=== PATIENT | female | born 1935 | race Caucasian/White ===

== ENCOUNTER 2016-08-20 05:39 | Day surgery (SDC) | payer MEDICARE, OTHER ==
--- NOTE | ~2016-08-20 | EGD ---
EGD REPORT [facility] [address] [place] [address] NAME: MORTEZA MARTÍNEZ : 37 STATUS : REG [facility]#: [id number] AGE: 80 ADM/REG DATE : 08/20/16 MR#: [id number] REPORT SERV DATE: 08/20/16 DICTATED BY: HUGH CHRISTOPHER DATE: 08/20/16 REPORT STATUS : Draft TRANSCRIBED BY: [employer] DATE: 08/20/16 [facility] Patient Name: Morteza Martínez. Date of : 1935 Attending MD: HUGH CHRISTOPHER, Procedure Date No Time: 08/20/2016 Procedure: Upper GI endoscopy Indications: Dyspepsia, Place PEG due to dysphagia Referring MD: YOSEPH DERAS Medicines: Monitored Anesthesia Care Complications: No immediate complications. Estimated blood loss: None. Procedure: Pre-Anesthesia Assessment: - ASA Grade Assessment: IV - A patient with severe systemic disease that is a constant threat to life. After obtaining informed consent, the endoscope was passed under direct vision. Throughout the procedure, the patient's blood pressure, pulse, and oxygen saturations were monitored continuously. The GIF [id number] was introduced through the mouth, and advanced to the second part of duodenum. The upper GI endoscopy was accomplished without difficulty. The patient tolerated the procedure well. Findings: A benign-appearing, intrinsic mild stenosis measuring 1 cm (in length) was found in the upper third of the esophagus and was traversed. 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 The maximum longitudinal extent of these mucosal changes was 1 cm in length. Biopsies were taken with a cold forceps for histology. Verification of patient identification for the specimen was done. Estimated blood loss was minimal. A small hiatus hernia was present. The examined duodenum was normal. The patient was placed in the supine position for PEG placement. The stomach was insufflated to appose gastric and abdominal lopez. A site was located in the body of the stomach with good transillumination and manual external pressure for placement. The abdominal wall was marked and prepped in a sterile manner. The area was anesthetized with 4 mL of 1% lidocaine. The trocar needle was introduced through the abdominal wall and into the stomach under direct endoscopic view. A snare was introduced through the endoscope and opened in the gastric lumen. The guide wire was passed through the trocar and into the open snare. The snare was closed around the guide wire. The endoscope and snare were removed, pulling the wire out through the mouth. A skin incision was made at the site of needle insertion. The 24 Fr [employer] EGD REPORT [id number] [facility] [place]. [address] NAME: MORTEZA MARTÍNEZ : 37 STATUS : REG [facility] [place] PAT#: [id number] AGE: 80 ADM/REG DATE : 08/20/16 MR#: [id number] REPORT SERV DATE: 08/20/16 DICTATED BY: HUGH CHRISTOPHER DATE: 08/20/16 REPORT STATUS : Draft TRANSCRIBED BY: [employer] DATE: 08/20/16 gastrostomy tube was lubricated. The G-tube was passed over the guide wire through the mouth, and into the stomach. The trocar needle was removed, and the gastrostomy tube was pulled out from the stomach through the skin. The guide wire was removed, and the external bumper attached to the gastrostomy tube. The feeding tube was then cut to an appropriate length. The final position of the gastrostomy tube was confirmed by relook endoscopy, and skin marking noted to be 3.5 cm at the external bumper. The final tension and compression of the abdominal wall by the PEG tube and external bumper were checked and revealed that the bumper was loose and lightly touching the skin. The feeding tube was capped, and the tube site was cleaned and dressed. Impression: - Benign-appearing esophageal stricture. - Palomo's esophagus. Biopsied. - Hiatus hernia. - Normal examined duodenum. - A PEG placement was successfully completed. Recommendation: - Please follow the post-PEG recommendations including: NPO x4 hrs then water today, may use PEG today for meds and water and may use PEG tomorrow for feedings. - Jevity 1.2 at 50 ml per hour. Provide an additional 450 ml of free water per day in divided doses. - Await pathology results. - Continue present medications. Procedure Code(s): --- Professional --- 31667, Esophagogastroduodenoscopy, flexible, transoral; with directed placement of percutaneous gastrostomy tube 93137, Esophagogastroduodenoscopy, flexible, transoral; with biopsy, single or multiple Diagnosis Code(s): --- Professional --- K22.2, Esophageal obstruction K22.70, Palomo's esophagus without dysplasia K44.9, Diaphragmatic hernia without obstruction or gangrene K30, Functional dyspepsia R13.10, Dysphagia, unspecified Z43.1, Encounter for attention to gastrostomy CPT copyright 2013 [employer]. All rights reserved. The codes documented in this report are preliminary and upon parking assistant review may be revised to meet current compliance requirements. EGD REPORT [address] [place]. [address] NAME: MORTEZA MARTÍNEZ : 37 STATUS : REG [facility] [place] PAT#: [id number] AGE: 80 ADM/REG DATE : 08/20/16 MR#: [id number] REPORT SERV DATE: 08/20/16 DICTATED BY: HUGH CHRISTOPHER DATE: 08/20/16 REPORT STATUS : Draft TRANSCRIBED BY: [employer] DATE: 08/20/16 HUGH CHRISTOPHER, 08/20/2016 7:50 AM Number of Addenda: 0 Note Initiated On: 08/20/2016 7:23 AM Scope Withdrawal Time 0 hours 0 minutes 0 seconds [id number] [address] [place] [id number]
[~2016-08-20 05:39] MED LIST: 8 HOUR650 MG PO; ALAWAY0.025 % OPH; BACDS PO; C25 PO; C5 PO; CALTRA600D PO; CALTRAT600 PO; CHEMO THERAPY IV; COUMADIN6 MG PO; COUMADIN7.5 MG PO; DEX4 PO; DITROPAN XL10 MG PO; FISH-EPA1000 MG PO; KEPPRA750 MG PO; LEXAPRO10 PO; MAGIC MOUTHWASH; MULTI-VIT HP PO; NORV10 PO; OXYCOD PO; VITC500 PO; ZOCOR20 PO
[2016-08-20 06:30] LABS: INTERNATIONAL NORMAL RATI 1.6 UNITS (-)
== END 2016-08-20 23:59 | disposition home or self-care (01) ==
LOC: DMU 05:39
PROVIDERS: Anesthesiology; Internal Medicine Gastroenterology
PROC: 0DH63UZ Insertion of Feeding Device into Stomach, Percutaneous Approach (ICD-10-PCS; 2016-08-20)
PROC: 0DB38ZX Excision of Lower Esophagus, Via Natural or Artificial Opening Endoscopic, Diagnostic (ICD-10-PCS; principal; 2016-08-20 07:30)
DX: K22.2 Esophageal obstruction (principal); K22.70 Barrett's esophagus without dysplasia; K44.9 Diaphragmatic hernia without obstruction or gangrene; G40.909 Epilepsy, unspecified, not intractable, without status epilepticus; Z85.21 Personal history of malignant neoplasm of larynx; Z92.21 Personal history of antineoplastic chemotherapy; Z87.01 Personal history of pneumonia (recurrent); Z91.09 Other allergy status, other than to drugs and biological substances; Z79.01 Long term (current) use of anticoagulants; Z79.899 Other long term (current) drug therapy
CPT/HCPCS: 85610; 88305; J0690

== ENCOUNTER 2016-10-11 16:07 | Inpatient (IN) | payer MEDICARE, OTHER ==
--- NOTE | ~2016-10-11 | OP ---
Record Of Operation [facility] [address] [place]. [address] NAME: MORTEZA MARTÍNEZ : 37 STATUS : ADM IN [facility]#: [id number] AGE: 80 ADM/REG DATE : 10/11/16 MR#: [id number] REPORT SERV DATE: 10/12/16 DICTATED BY: IZA TRUONG DATE: 10/11/16 REPORT STATUS : Draft TRANSCRIBED BY: MODL DATE: 10/11/16 DATE OF PROCEDURE: 10/11/2016 TIME: 1900 hours. PROCEDURE: Right internal jugular venous line. INDICATION: For access. DESCRIPTION OF PROCEDURE: Informed consent obtained. The risks, benefits of procedure. Time-out was done. Trendelenburg position. Ultrasound-guided. Betadine used for scrub. Xylocaine 1% used for anesthesia. Right IJ entered with seeker needle. Catheter placed over guidewire via modified Seldinger technique to 15 cm, sutured in place. Sterile technique used throughout. Confirmed by agitated saline echo which showed agitated saline in the right atrium. No pneumothorax by echo and confirmed by x-ray. Sterile technique used throughout. BILL/JORGE Iza Truong M.D. / [id number] CC: MD Nikolas Avila
--- NOTE | ~2016-10-11 | IDS ---
Interim Discharge Summary [facility] [address] [place]. [address] NAME: MORTEZA MARTÍNEZ : 37 STATUS : ADM IN PAT#: [id number] AGE: 80 ADM/REG DATE : 10/11/16 MR#: [id number] REPORT SERV DATE: 10/14/16 DICTATED BY: KRYSTLE PRABHAKAR DATE: 10/14/16 REPORT STATUS : Draft TRANSCRIBED BY: MODL DATE: 10/14/16 ADMISSION DATE: 10/11/2016 DISCHARGE DATE: INTERIM DIAGNOSES: 1. Acute hypoxic respiratory failure. 2. Septic shock. 3. Healthcare-associated pneumonia. 4. Acute renal failure. 5. History of seizures. 6. History of laryngeal cancer. ICU COURSE: Please see the dictated H and P for full patient presentation and history. 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 Mendenhall as well as peripheral arterial disease and history of seizures, who initially presented with cough, shortness of breath, found to have a multifocal health-care associated pneumonia as well as septic shock, and was admitted to our ICU back on 10/11/2016. 1. Acute hypoxic respiratory failure with healthcare-associated pneumonia. The patient currently resides in a fci. We empirically put her initially on vancomycin and Zosyn for coverage of healthcare-associated pneumonia. Her sputum thus far has grown out Strep pyogenes as well as rare gram-negative rods. Her antibiotic has since been tailored to Unasyn, and she has done well from that standpoint. We will continue to follow up her sputum culture for further speciation. From respiratory failure standpoint, she is a do not intubate. Initially, she was requiring Vapotherm to maintain sats greater than 90%. However, we have been able to wean her down to nasal cannula over the last 48 hours. We are getting Physical Therapy to see her today, and also continue with incentive spirometry and EzPAP. 2. Septic shock. The patient initially required placement of a central line and was on Levophed for 24 to 48 hours. She has now been off her Levophed for the past 36 hours or so. Has done well from the blood pressure standpoint. Today we are getting out her central line and placing a midline peripheral. 3. Acute renal failure. The patient did have elevated creatinine and poor urine output. She first arrived. Her renal failure has now resolved. We will continue to monitor her urine output and creatinine. 4. The patient is stable and will be transferred out to a floor bed today. The Hospitalist will assume her care once she goes out from the unit. Please call if you have any questions. KAVITHA/JORGE Kyrstle Prabhakar MD Interim Discharge Summary [address] [address] NAME: MORTEZA MARTÍNEZ : 37 STATUS : ADM IN PAT#: [id number] AGE: 80 ADM/REG DATE : 10/11/16 MR#: [id number] REPORT SERV DATE: 10/14/16 DICTATED BY: KRYSTLE PRABHAKAR DATE: 10/14/16 REPORT STATUS : Draft TRANSCRIBED BY: JORGE DATE: 10/14/16 / [id number] CC: Krystle Prabhakar MD [facility]
--- NOTE | ~2016-10-11 | IDS ---
Interim Discharge Summary [facility] [address] [place]. [address] NAME: MORTEZA MARTÍNEZ : 37 STATUS : ADM IN [facility]#: [id number] AGE: 80 ADM/REG DATE : 10/11/16 MR#: [id number] REPORT SERV DATE: 10/18/16 DICTATED BY: EMELY ZULETA DATE: 10/18/16 REPORT STATUS : Draft TRANSCRIBED BY: MODL DATE: 10/18/16 ADMISSION DATE: 10/11/2016 DISCHARGE DATE: REASON FOR ADMISSION: Septic shock, acute kidney injury, strep pyogenes pneumonia. HISTORY OF PRESENT ILLNESS: Please refer to Dr. Tom Prabhakar's history and physical dated 10/11/2016 for complete details regarding the patient's admission. The patient was [facility] to the ICU for septic shock secondary to pneumonia. HOSPITAL COURSE: From admission to 10/14/[address] Prabhakar's interim summary. In brief, the patient was treated for acute hypoxic respiratory failure, septic shock, strep pyogenes pneumonia, and KHOA secondary to ATN. While in the ICU, she was weaned down to 2 liters of nasal cannula and then transferred out to the Hospitalist Service on 10/14/2016. Hospital course from 10/15/2016 to present, I assumed care of this patient from Dr. Prabhakar. On the morning that I assumed care of her on , she was saturating fine on 2 liters nasal cannula. Throughout the day, her oxygenation had continued to decline to the point where she was placed on a non-rebreather on the day that I assumed care of her. I look back at the record and she had not been on any DVT prophylaxis since the first day of admission, certainly concern for a PE. She had a stat CT angio of her chest done on 10/15/2016 which showed no pulmonary emboli, but there are small pleural effusions with compressive atelectasis along with left lower lobe bronchi occlusion secondary to mucus plugging. With this, she was started on aggressive pulmonary toilet. She gotten wean down to about 5 liters of nasal cannula currently. Pulmonary Medicine was consulted and continued to follow the patient. Dr. Restrepo did not advice doing a bronchoscopy to break up her mucus plugging given how much oxygenation she was requiring. She continues to be on Unasyn, it is approximately day eight. She does not have any complaints. She continues to be frail and very brittle. Her family has been updated. The family states that she was doing a pureed diet at the senior care, and therefore, we will get a Speech Therapy evaluation. The family states that she has been cancer free and has finished her chemotherapy and radiation treatment for her laryngeal cancer. She does have a known history of seizures while she is on Keppra, there has been no seizure activity. Overall, the patient has a poor prognosis. She has expressed to be DO NOT RESUSCITATE/DO NOT INTUBATE and we will respect her wishes. DISPOSITION: The patient will go back to her facility at [facility] in [place] after we were able to wean her oxygen levels down, which could be in a couple of days. The family has been updated. Further disposition decision per oncoming hospitalist who will assume care of this patient on 10/19/2016. INTERIM DIAGNOSES: Acute on chronic hypoxic respiratory failure; septic shock secondary to Streptococcus pyogenes pneumonia; acute kidney injury secondary to acute tubular necrosis; severe malnutrition; history of seizures; history of laryngeal cancer, status post chemotherapy and radiation; history of uterine cancer; dysphagia; and debility. Interim Discharge Summary [address] [address] NAME: MORTEZA MARTÍNEZ : 37 STATUS : ADM IN [facility]#: [id number] AGE: 80 ADM/REG DATE : 10/11/16 MR#: [id number] REPORT SERV DATE: 10/18/16 DICTATED BY: EMELY ZULETA DATE: 10/18/16 REPORT STATUS : Draft TRANSCRIBED BY: JORGE DATE: 10/18/16 LYNN/JORGE Emely Zuleta MD / [id number] CC: MD AUGUSTA Jarvis [facility]
--- NOTE | ~2016-10-11 | HP ---
History And Physical [id number] [place]. [address] NAME: MORTEZA MARTÍNEZ : 37 STATUS : ADM IN [facility]#: [id number] AGE: 80 ADM/REG DATE : 10/11/16 MR#: [id number] REPORT SERV DATE: 10/11/16 DICTATED BY: KRYSTLE PRABHAKAR DATE: 10/11/16 REPORT STATUS : Draft TRANSCRIBED BY: MODL DATE: 10/11/16 DATE OF ADMISSION: 10/11/2016 CHIEF COMPLAINT: Shortness of breath and cough. HISTORY OF PRESENT ILLNESS: The patient is a 80-year-old white female with a past medical history of laryngeal squamous cell carcinoma, peripheral arterial disease, and history of seizures, who presents to the emergency room with complaints of cough and shortness of breath. The patient currently resides in a long-term acute care facility when the staff there noticed that she has been having worsening shortness of breath over the last couple of days with a productive cough. She was sent to the emergency room at outside hospital for evaluation. There she was noted to be tachypneic and had a chest x-ray that showed bilateral infiltrates. She was eventually placed on a non-rebreather for hypoxia. She also had some mild confusion as well as a low-grade temperature and lactic acid of 4.7 with a borderline blood pressure concerning for pneumonia with sepsis. The patient is a DNR/DNI, but she is okay with vasopressors and so the patient was transferred to our facility for further treatment of her pneumonia and sepsis. PAST MEDICAL HISTORY: 1. History of laryngeal cancer with squamous cell carcinoma, status post chemoradiation by Dr. Mendenhall. 2. History of seizures. 3. History of hypertension. 4. History of right DVT. 5. Peripheral arterial disease. 6. Hyperlipidemia. 7. History of uterine cancer, status post hysterectomy. 8. History of multiple small-bowel obstructions. 9. History of left AKA. ALLERGIES: RUBBING ALCOHOL. HOME MEDICATIONS: 1. Ditropan 10 mg p.o. daily. 2. Keppra 750 mg p.o. twice daily. 3. Norvasc 10 mg p.o. daily. 4. Lexapro 10 mg p.o. daily. 5. Zocor 20 mg p.o. q.h.s. 6. Roxicodone 5 mg p.o. q.6 hours as needed. SOCIAL HISTORY: Remote history of tobacco use, quit at age 53. No alcohol or IV drug abuse. Currently living in a long-term care facility. FAMILY HISTORY: Reviewed and positive for lung cancer in mother and breast cancer in grandmother. History And Physical [address] [place]. [address] NAME: MORTEZA MARTÍNEZ : 37 STATUS : ADM IN [facility]#: [id number] AGE: 80 ADM/REG DATE : 10/11/16 MR#: [id number] REPORT SERV DATE: 10/11/16 DICTATED BY: KYRSTLE PRABHAKAR DATE: 10/11/16 REPORT STATUS : Draft TRANSCRIBED BY: JORGE DATE: 10/11/16 REVIEW OF SYSTEMS: A 10-point review of systems is negative except as mentioned in the HPI. PHYSICAL EXAMINATION: GENERAL: Elderly-appearing female, in mild respiratory distress. HEENT: Pupils are equal, round, and reactive to light. Extraocular movements are intact. Oropharynx is clear. Dry mucous membranes. NECK: Supple. Nontender. No lymphadenopathy. No thyromegaly. No jugular venous distention. LUNGS: Coarse breath sounds bilaterally. CARDIOVASCULAR: Tachycardic. No murmurs, rubs, or gallops. ABDOMEN: Soft, nontender, nondistended. Positive bowel sounds. No hepatosplenomegaly. EXTREMITIES: No cyanosis, clubbing, or edema. NEUROLOGIC: Alert and oriented x3. Cranial nerves intact. PSYCH: Mood appropriate. LABORATORIES AND IMAGING: Pending at this time of the dictation per outside hospital. Lactic acid was 4.7. Chest x-ray showed diffuse bilateral infiltrates consistent with pneumonia. ASSESSMENT AND PLAN: The patient is a 80-year-old female with past medical history of laryngeal cancer and seizures, who now presents with a two-day history of shortness of breath and a productive cough with a chest x-ray concerning for healthcare associated pneumonia and sepsis with possible septic shock. 1. Healthcare associated pneumonia. Empirically, we will start patient on vancomycin and Zosyn. I will get a sputum culture as well as blood cultures x2 and procalcitonin. Also check a BNP and get echocardiogram as well as cardiac enzymes. The patient is do not intubate. We will place her on Vapotherm and wean for sats greater than 90%. 2. Septic shock. The patient currently has a systolic blood pressure in the 80s. We are giving further IV fluid resuscitation and getting PICC line. If needed to be, we will start Levophed for the patient to maintain a MAP greater than 65. 3. Hypertension. We will hold the patient's home antihypertensives for now. 4. History of seizures. We will continue the patient's home Keppra. 5. The patient is a do not resuscitate/do not intubate. 6. The patient has a high probability of sudden clinically significant or life-threatening deterioration in her condition. Total critical care time spent on this patient was 40 minutes. KAVITHA/JORGE Krystle Prabhakar MD / [id number] History And Physical [address] [address] NAME: MORTEZA MARTÍNEZ : 37 STATUS : ADM IN [facility]#: [id number] AGE: 80 ADM/REG DATE : 10/11/16 MR#: [id number] REPORT SERV DATE: 10/11/16 DICTATED BY: KRYSTLE PRABHAKAR DATE: 10/11/16 REPORT STATUS : Draft TRANSCRIBED BY: JORGE DATE: 10/11/16 CC: MD AUGUSTA Avila [facility]
--- NOTE | ~2016-10-11 | DS ---
Discharge Summary [facility] [address] [place]. [address] NAME: MORTEZA MARTÍNEZ : 37 STATUS : DIS IN PAT#: [id number] AGE: 80 ADM/REG DATE : 10/11/16 MR#: [id number] REPORT SERV DATE: 10/29/16 DICTATED BY: IHSAN PAZ DATE: 10/28/16 REPORT STATUS : Draft TRANSCRIBED BY: MODL DATE: 10/28/16 ADMISSION DATE: 10/11/2016 DISCHARGE DATE: 10/21/2016 DISCHARGE DIAGNOSES: 1. Hypoxic respiratory failure. 2. Septic shock. 3. Acute kidney injury secondary to acute tubular necrosis. 4. Dysphagia. 5. Severe malnutrition. 6. Streptococcus pyogenes pneumonia. CONSULTATIONS: Dr. Prabhakar. Initial admission to ICU from [facility]. HOSPITAL COURSE: Please see H and P for complete details of HPI. Additionally, please see interim summary by Dr. Tom Prabhakar and Dr. Zuleta for interim courses. Briefly, Ms. Martínez is a 80-year-old female, who presented with pneumonia, sepsis, Strep pyogenes, and septic shock requiring ICU support. The patient was from [place] [place] [facility]. Noted to have history of laryngeal cancer and concern for severe dysphagia, aspiration component additionally. The patient did have mucus plugging, which caused continued initial worsening of hypoxic respiratory failure, but was able to be weaned down from ICU care along with O2 requirements, weaned down to 5 L and eventually back to her baseline. The patient was on IV antibiotics. Did have clinical improvement. Was continued supportive treatment for respiratory and had repeat swallow study. Speech therapy evaluation still considered; however, as for p.o. intake, the patient was tolerating tube feeds and discharged back to [place], [place]. The patient did reconfirm that she is DNR/DNI and POLST forms were placed on chart. DDN/MODL Ihsan Paz MD / [id number] CC: Ihsan Paz MD [facility]
[2016-10-11] MEDS ORDERED: FLONASE NAS (19:16)
[2016-10-11] MEDS ORDERED: OXYBUTYNIN PEG (19:19)
[2016-10-11] MEDS ORDERED: PRILO PEG (19:20)
[2016-10-11] MEDS ORDERED: VITC500 PEG (19:20)
[2016-10-11] MEDS ORDERED: NORV10 PEG (19:20)
[2016-10-11] MEDS ORDERED: CLARIT10 PEG (19:20)
[2016-10-11] MEDS ORDERED: LEXAPRO10 PEG (19:21)
[2016-10-11] MEDS ORDERED: T PEG (19:21)
[2016-10-11] MEDS ORDERED: MAGIC MOUTHWASH PO (19:23)
[2016-10-11] MEDS ORDERED: COUMADIN4 MG PEG (19:23)
[2016-10-11] MEDS ORDERED: KEPPRAUDL PEG (19:23)
[2016-10-11] MEDS ORDERED: ULTRAM50 PEG (19:24)
[2016-10-11] MEDS ORDERED: OXYCOD PEG (19:24)
[2016-10-11] MEDS ORDERED: PRAVACHOL40 MG PEG (19:26)
[2016-10-11] MEDS ORDERED: DUONEB INH (19:26)
[2016-10-11 20:52] LABS: BASOPHILS 0.1 %; BASOPHILS ABSOLUTE 0.01 10/3/uL (0.0-0.16); EOSINOPHILS 0 %; HEMATOCRIT 30.5 % (36.0-48.0); HEMOGLOBIN 9.4 g/dL (12.0-16.0); IMMATURE GRANULOCYTES 0.3 %; IMMATURE GRANULOCYTES ABSOLUTE 0.05 10/3/uL (0.0-0.11); LYMPHOCYTES 1.6 %; LYMPHOCYTES ABSOLUTE 0.27 10/3/uL (0.67-4.30); MANUAL DIFF NO %; MEAN CORPUS HGB CONC 30.8 g/dL (32.0-36.0); MEAN CORPUSCULAR HEMOGLOB 24.7 pg (26.0-34.0); MEAN CORPUSCULAR VOLUME 80.3 fL (80-100); MEAN PLATELET VOLUME 9.3 fL (9.2-13.0); MONOCYTES 4.5 %; MONOCYTES ABSOLUTE 0.74 10/3/uL (0.21-1.20); NEUTROPHILS 93.5 %; NEUTROPHILS ABSOLUTE 15.48 10/3/uL (2.02-8.40); PLATELET COUNT 233 10/3/uL (150-400); RBC DISTRIBUTION WIDTH 17.5 % (12.0-16.0); WHITE BLOOD CELLS 16.6 10/3/uL (4.5-10.5)
[2016-10-11 21:02] LABS: ASCORBIC ACID (UR NOT ORDER) 40 (NEG); BILIRUBIN, URINE NEGATIVE (NEG); KETONE, URINE NEGATIVE (NEG); LEUKOCYTE ESTERASE(NOT OR NEG (NEG); WBC (NOT ORDERED) (RFLEX) 2 (0-5)
[2016-10-11 21:07] LABS: INTERNATIONAL NORMAL RATI 4.5 UNITS (-); PARTIAL THROMBO TIME 59.7 SEC (22.5-37.2)
[2016-10-11 21:11] LABS: A/G RATIO 0.6 (0.7-1.9); ALBUMIN 2.1 G/DL (3.5-5.0); ALKALINE PHOSPHATASE 69 U/L (45-117); BUN (BLOOD UREA NITROGEN) 34 MG/DL (6-23); CALCIUM, SERUM 8.3 MG/DL (8.5-10.4); CHLORIDE, SERUM 106 MMOL/L (96-112); CK-MB 3.9 NG/ML; CO2 (CARBON DIOXIDE) 26 MMOL/L (24-34); CPK 208 U/L (0-200); CREATININE 1.08 MG/DL (0.55-1.02); GFR AFRICAN AMERICAN 57 ML/MIN (>=60); GFR NON AFRICAN AMERICAN 49 ML/MIN (>=60); GLOBULIN 3.6 G/DL (2.5-4.1); GLUCOSE, SERUM 66 MG/DL (60-99); PHOSPHORUS, SERUM 3.1 MG/DL (2.5-4.5); POTASSIUM, SERUM 4.6 MMOL/L (3.5-5.3); SGOT(AST) 27 U/L (5-40); SGPT(ALT) 37 U/L (5-65); SODIUM, SERUM 142 MMOL/L (135-148); TOTAL BILIRUBIN 0.5 MG/DL (0-1.2); TOTAL PROTEIN 5.7 G/DL (6.0-8.5)
[2016-10-11 21:12] LABS: PROTIME (NOT ORD) 42.6 SEC (12.0-14.5)
[2016-10-11 21:13] LABS: TROPONIN I 0.26 NG/ML (<0.05)
[2016-10-11 22:12] LABS: PROCALCITONIN 108.42 ng/mL (<0.5)
[2016-10-12 04:05] LABS: INTERNATIONAL NORMAL RATI 5.8 UNITS (-); PROTIME (NOT ORD) 51.9 SEC (12.0-14.5)
[2016-10-12 04:13] LABS: A/G RATIO 0.5 (0.7-1.9); ALBUMIN 1.8 G/DL (3.5-5.0); ALKALINE PHOSPHATASE 67 U/L (45-117); CALCIUM, SERUM 8.5 MG/DL (8.5-10.4); CHLORIDE, SERUM 108 MMOL/L (96-112); CO2 (CARBON DIOXIDE) 25 MMOL/L (24-34); CREATININE 0.71 MG/DL (0.55-1.02); GFR AFRICAN AMERICAN 94 ML/MIN (>=60); GFR NON AFRICAN AMERICAN 81 ML/MIN (>=60); GLOBULIN 3.7 G/DL (2.5-4.1); PHOSPHORUS, SERUM 2.8 MG/DL (2.5-4.5); POTASSIUM, SERUM 4.4 MMOL/L (3.5-5.3); SGOT(AST) 27 U/L (5-40); SGPT(ALT) 32 U/L (5-65); SODIUM, SERUM 142 MMOL/L (135-148); TOTAL BILIRUBIN 0.4 MG/DL (0-1.2); TOTAL PROTEIN 5.5 G/DL (6.0-8.5)
[2016-10-12 04:19] LABS: BUN (BLOOD UREA NITROGEN) 30 MG/DL (6-23); GLUCOSE, SERUM 109 MG/DL (60-99); HEMOGLOBIN 9.6 g/dL (12.0-16.0); MEAN CORPUSCULAR HEMOGLOB 24.7 pg (26.0-34.0); MEAN CORPUSCULAR VOLUME 79.9 fL (80-100); PLATELET COUNT 255 10/3/uL (150-400); RBC DISTRIBUTION WIDTH 17.4 % (12.0-16.0); RED CELL COUNT 3.88 10/6/uL (4.0-5.6)
[2016-10-12 04:20] LABS: WHITE BLOOD CELLS 32.2 10/3/uL (4.5-10.5)
[2016-10-12 04:21] LABS: MANUAL DIFF YES %
[2016-10-12 06:32] LABS: ANISOCYTOSIS 1+ (5-10/OIF) (0-5/OIF); BAND NEUTROPHILS 22 %; IMMATURE GRANS ABSOLUTE (CALC) 0.32 10/3/uL (0.0-0.11); LYMPHOCYTES 2 %; LYMPHOCYTES ABSOLUTE (CALC) 0.64 10/3/uL (0.67-4.30); METAMYELOCYTES 1 %; MONOCYTES 4 %; MONOCYTES ABSOLUTE (CALC) 1.29 10/3/uL (0.21-1.20); NEUTROPHILS ABSOLUTE (CALC) 29.95 10/3/uL (2.02-8.40); RBC MORPHOLOGY ABN (NORMAL); SEGMENTED NEUTROPHIL (0) 71 %; TOTAL NUCLEATED CELLS 100
[2016-10-12 06:33] LABS: PLATELET ESTIMATE ADQ (ADEQUATE)
[2016-10-13 05:00] LABS: BASOPHILS 0.1 %; BASOPHILS ABSOLUTE 0.01 10/3/uL (0.0-0.16); EOSINOPHILS 0.1 %; EOSINOPHILS ABSOLUTE 0.01 10/3/uL (0.0-0.53); HEMATOCRIT 26.5 % (36.0-48.0); HEMOGLOBIN 8.4 g/dL (12.0-16.0); IMMATURE GRANULOCYTES 0.8 %; IMMATURE GRANULOCYTES ABSOLUTE 0.15 10/3/uL (0.0-0.11); LYMPHOCYTES 1.6 %; LYMPHOCYTES ABSOLUTE 0.31 10/3/uL (0.67-4.30); MEAN CORPUS HGB CONC 31.7 g/dL (32.0-36.0); MEAN CORPUSCULAR HEMOGLOB 25.3 pg (26.0-34.0); MEAN CORPUSCULAR VOLUME 79.8 fL (80-100); MEAN PLATELET VOLUME 9.1 fL (9.2-13.0); MONOCYTES 3.1 %; MONOCYTES ABSOLUTE 0.61 10/3/uL (0.21-1.20); NEUTROPHILS 94.3 %; NEUTROPHILS ABSOLUTE 18.83 10/3/uL (2.02-8.40); PLATELET COUNT 210 10/3/uL (150-400); RBC DISTRIBUTION WIDTH 17.5 % (12.0-16.0); RED CELL COUNT 3.32 10/6/uL (4.0-5.6); WHITE BLOOD CELLS 19.9 10/3/uL (4.5-10.5)
[2016-10-13 05:01] LABS: MANUAL DIFF NO %
[2016-10-13 05:19] LABS: BUN (BLOOD UREA NITROGEN) 21 MG/DL (6-23); CALCIUM, SERUM 8.7 MG/DL (8.5-10.4); CHLORIDE, SERUM 109 MMOL/L (96-112); CO2 (CARBON DIOXIDE) 25 MMOL/L (24-34); CREATININE 0.29 MG/DL (0.55-1.02); GFR AFRICAN AMERICAN 128 ML/MIN (>=60); GFR NON AFRICAN AMERICAN 110 ML/MIN (>=60); GLUCOSE, SERUM 67 MG/DL (60-99); PHOSPHORUS, SERUM 2.1 MG/DL (2.5-4.5); POTASSIUM, SERUM 3.8 MMOL/L (3.5-5.3); SODIUM, SERUM 142 MMOL/L (135-148)
[2016-10-13 06:45] LABS: INTERNATIONAL NORMAL RATI 2.1 UNITS (-)
[2016-10-13 12:14] LABS: A/G RATIO 0.5 (0.7-1.9); ALBUMIN 1.6 G/DL (3.5-5.0); ALKALINE PHOSPHATASE 71 U/L (45-117); GLOBULIN 3.1 G/DL (2.5-4.1); PREALBUMIN 5.3 MG/DL (17.0-43.0); SGOT(AST) 20 U/L (5-40); SGPT(ALT) 26 U/L (5-65); TOTAL BILIRUBIN 0.5 MG/DL (0-1.2); TOTAL PROTEIN 4.7 G/DL (6.0-8.5)
[2016-10-14 03:55] LABS: INTERNATIONAL NORMAL RATI 1.5 UNITS (-); PARTIAL THROMBO TIME 47.1 SEC (22.5-37.2)
[2016-10-14 03:56] LABS: PROTIME (NOT ORD) 18.4 SEC (12.0-14.5)
[2016-10-14 04:05] LABS: A/G RATIO 0.5 (0.7-1.9); ALBUMIN 1.7 G/DL (3.5-5.0); CALCIUM, SERUM 8.9 MG/DL (8.5-10.4); CHLORIDE, SERUM 109 MMOL/L (96-112); CO2 (CARBON DIOXIDE) 25 MMOL/L (24-34); GFR AFRICAN AMERICAN 126 ML/MIN (>=60); GFR NON AFRICAN AMERICAN 109 ML/MIN (>=60); GLOBULIN 3.6 G/DL (2.5-4.1); POTASSIUM, SERUM 3.1 MMOL/L (3.5-5.3); SGOT(AST) 23 U/L (5-40); SGPT(ALT) 30 U/L (5-65); SODIUM, SERUM 145 MMOL/L (135-148); TOTAL BILIRUBIN 0.5 MG/DL (0-1.2); TOTAL PROTEIN 5.3 G/DL (6.0-8.5)
[2016-10-14 04:06] LABS: ALKALINE PHOSPHATASE 96 U/L (45-117); BUN (BLOOD UREA NITROGEN) 12 MG/DL (6-23); GLUCOSE, SERUM 102 MG/DL (60-99)
[2016-10-14 09:56] LABS: POTASSIUM, SERUM 3.7 MMOL/L (3.5-5.3)
[2016-10-15 03:34] LABS: BASOPHILS 0.1 %; BASOPHILS ABSOLUTE 0.01 10/3/uL (0.0-0.16); EOSINOPHILS 0.2 %; EOSINOPHILS ABSOLUTE 0.03 10/3/uL (0.0-0.53); HEMATOCRIT 30.4 % (36.0-48.0); HEMOGLOBIN 9.6 g/dL (12.0-16.0); IMMATURE GRANULOCYTES 0.2 %; IMMATURE GRANULOCYTES ABSOLUTE 0.03 10/3/uL (0.0-0.11); LYMPHOCYTES 2.7 %; LYMPHOCYTES ABSOLUTE 0.33 10/3/uL (0.67-4.30); MANUAL DIFF NO %; MEAN CORPUS HGB CONC 31.6 g/dL (32.0-36.0); MEAN CORPUSCULAR HEMOGLOB 24.7 pg (26.0-34.0); MEAN CORPUSCULAR VOLUME 78.4 fL (80-100); MONOCYTES 6.2 %; MONOCYTES ABSOLUTE 0.75 10/3/uL (0.21-1.20); NEUTROPHILS 90.6 %; NEUTROPHILS ABSOLUTE 11.02 10/3/uL (2.02-8.40); PLATELET COUNT 222 10/3/uL (150-400); RBC DISTRIBUTION WIDTH 17.4 % (12.0-16.0); RED CELL COUNT 3.88 10/6/uL (4.0-5.6); WHITE BLOOD CELLS 12.2 10/3/uL (4.5-10.5)
[2016-10-15 03:39] LABS: INTERNATIONAL NORMAL RATI 1.9 UNITS (-)
[2016-10-15 03:42] LABS: PROTIME (NOT ORD) 21.5 SEC (12.0-14.5)
[2016-10-15 03:46] LABS: BUN (BLOOD UREA NITROGEN) 10 MG/DL (6-23); CALCIUM, SERUM 8.3 MG/DL (8.5-10.4); CHLORIDE, SERUM 106 MMOL/L (96-112); CREATININE 0.36 MG/DL (0.55-1.02); GFR AFRICAN AMERICAN 119 ML/MIN (>=60); GFR NON AFRICAN AMERICAN 103 ML/MIN (>=60); PHOSPHORUS, SERUM 3.2 MG/DL (2.5-4.5); POTASSIUM, SERUM 3.7 MMOL/L (3.5-5.3); SODIUM, SERUM 144 MMOL/L (135-148)
[2016-10-15 03:47] LABS: CO2 (CARBON DIOXIDE) 31 MMOL/L (24-34); GLUCOSE, SERUM 200 MG/DL (60-99)
[2016-10-16 06:15] LABS: INTERNATIONAL NORMAL RATI 1.8 UNITS (-); PROTIME (NOT ORD) 20.4 SEC (12.0-14.5)
[2016-10-17 06:42] LABS: BASOPHILS 0.3 %; BASOPHILS ABSOLUTE 0.02 10/3/uL (0.0-0.16); EOSINOPHILS ABSOLUTE 0.12 10/3/uL (0.0-0.53); HEMATOCRIT 30.2 % (36.0-48.0); HEMOGLOBIN 9.1 g/dL (12.0-16.0); IMMATURE GRANULOCYTES 0.5 %; IMMATURE GRANULOCYTES ABSOLUTE 0.03 10/3/uL (0.0-0.11); LYMPHOCYTES 3.8 %; LYMPHOCYTES ABSOLUTE 0.23 10/3/uL (0.67-4.30); MEAN CORPUS HGB CONC 30.1 g/dL (32.0-36.0); MEAN CORPUSCULAR HEMOGLOB 24.3 pg (26.0-34.0); MEAN CORPUSCULAR VOLUME 80.7 fL (80-100); MEAN PLATELET VOLUME 9.2 fL (9.2-13.0); MONOCYTES 12.3 %; MONOCYTES ABSOLUTE 0.75 10/3/uL (0.21-1.20); NEUTROPHILS 81.1 %; NEUTROPHILS ABSOLUTE 4.96 10/3/uL (2.02-8.40); PLATELET COUNT 251 10/3/uL (150-400); RBC DISTRIBUTION WIDTH 17.5 % (12.0-16.0); RED CELL COUNT 3.74 10/6/uL (4.0-5.6)
[2016-10-17 06:44] LABS: INTERNATIONAL NORMAL RATI 1.5 UNITS (-); PROTIME (NOT ORD) 17.7 SEC (12.0-14.5)
[2016-10-17 06:48] LABS: WHITE BLOOD CELLS 6.1 10/3/uL (4.5-10.5)
[2016-10-17 06:49] LABS: MANUAL DIFF NO %
[2016-10-17 06:52] LABS: A/G RATIO 0.5 (0.7-1.9); ALBUMIN 1.8 G/DL (3.5-5.0); ALKALINE PHOSPHATASE 103 U/L (45-117); CALCIUM, SERUM 8.5 MG/DL (8.5-10.4); CHLORIDE, SERUM 106 MMOL/L (96-112); CO2 (CARBON DIOXIDE) 34 MMOL/L (24-34); CREATININE 0.37 MG/DL (0.55-1.02); GFR AFRICAN AMERICAN 118 ML/MIN (>=60); GFR NON AFRICAN AMERICAN 102 ML/MIN (>=60); GLOBULIN 3.8 G/DL (2.5-4.1); PHOSPHORUS, SERUM 3.2 MG/DL (2.5-4.5); POTASSIUM, SERUM 3.8 MMOL/L (3.5-5.3); SGOT(AST) 21 U/L (5-40); SGPT(ALT) 40 U/L (5-65); SODIUM, SERUM 146 MMOL/L (135-148); TOTAL BILIRUBIN 0.3 MG/DL (0-1.2); TOTAL PROTEIN 5.6 G/DL (6.0-8.5)
[2016-10-17 06:54] LABS: BUN (BLOOD UREA NITROGEN) 19 MG/DL (6-23); GLUCOSE, SERUM 140 MG/DL (60-99)
[2016-10-17 07:28] LABS: PROCALCITONIN 3.38 ng/mL (<0.5)
[2016-10-18 06:10] LABS: INTERNATIONAL NORMAL RATI 1.4 UNITS (-); PROTIME (NOT ORD) 16.7 SEC (12.0-14.5)
[2016-10-18 06:27] LABS: A/G RATIO 0.5 (0.7-1.9); ALBUMIN 1.8 G/DL (3.5-5.0); ALKALINE PHOSPHATASE 108 U/L (45-117); BUN (BLOOD UREA NITROGEN) 21 MG/DL (6-23); CALCIUM, SERUM 8.8 MG/DL (8.5-10.4); CHLORIDE, SERUM 108 MMOL/L (96-112); CO2 (CARBON DIOXIDE) 34 MMOL/L (24-34); CREATININE 0.45 MG/DL (0.55-1.02); GFR AFRICAN AMERICAN 110 ML/MIN (>=60); GFR NON AFRICAN AMERICAN 95 ML/MIN (>=60); GLOBULIN 3.9 G/DL (2.5-4.1); GLUCOSE, SERUM 143 MG/DL (60-99); PHOSPHORUS, SERUM 3.1 MG/DL (2.5-4.5); POTASSIUM, SERUM 3.5 MMOL/L (3.5-5.3); PREALBUMIN 13.2 MG/DL (17.0-43.0); SGOT(AST) 18 U/L (5-40); SGPT(ALT) 37 U/L (5-65); SODIUM, SERUM 148 MMOL/L (135-148); TOTAL BILIRUBIN 0.3 MG/DL (0-1.2); TOTAL PROTEIN 5.7 G/DL (6.0-8.5)
[2016-10-19 07:08] LABS: BASOPHILS 0.2 %; BASOPHILS ABSOLUTE 0.01 10/3/uL (0.0-0.16); EOSINOPHILS 1.5 %; EOSINOPHILS ABSOLUTE 0.08 10/3/uL (0.0-0.53); HEMATOCRIT 28.6 % (36.0-48.0); HEMOGLOBIN 8.6 g/dL (12.0-16.0); IMMATURE GRANULOCYTES 0.4 %; IMMATURE GRANULOCYTES ABSOLUTE 0.02 10/3/uL (0.0-0.11); LYMPHOCYTES 5.7 %; LYMPHOCYTES ABSOLUTE 0.31 10/3/uL (0.67-4.30); MEAN CORPUS HGB CONC 30.1 g/dL (32.0-36.0); MEAN CORPUSCULAR HEMOGLOB 24.3 pg (26.0-34.0); MEAN CORPUSCULAR VOLUME 80.8 fL (80-100); MEAN PLATELET VOLUME 9.8 fL (9.2-13.0); MONOCYTES 5.7 %; MONOCYTES ABSOLUTE 0.31 10/3/uL (0.21-1.20); NEUTROPHILS 86.5 %; NEUTROPHILS ABSOLUTE 4.74 10/3/uL (2.02-8.40); RBC DISTRIBUTION WIDTH 17.8 % (12.0-16.0); RED CELL COUNT 3.54 10/6/uL (4.0-5.6); WHITE BLOOD CELLS 5.5 10/3/uL (4.5-10.5)
[2016-10-19 07:12] LABS: INTERNATIONAL NORMAL RATI 1.6 UNITS (-); PROTIME (NOT ORD) 18.5 SEC (12.0-14.5)
[2016-10-19 07:14] LABS: MANUAL DIFF NO %; PLATELET COUNT 333 10/3/uL (150-400)
[2016-10-20 06:40] LABS: BASOPHILS 0.5 %; BASOPHILS ABSOLUTE 0.02 10/3/uL (0.0-0.16); EOSINOPHILS 1.9 %; EOSINOPHILS ABSOLUTE 0.08 10/3/uL (0.0-0.53); HEMATOCRIT 28.5 % (36.0-48.0); HEMOGLOBIN 8.6 g/dL (12.0-16.0); IMMATURE GRANULOCYTES 0.2 %; IMMATURE GRANULOCYTES ABSOLUTE 0.01 10/3/uL (0.0-0.11); LYMPHOCYTES 6.5 %; LYMPHOCYTES ABSOLUTE 0.27 10/3/uL (0.67-4.30); MEAN CORPUS HGB CONC 30.2 g/dL (32.0-36.0); MEAN CORPUSCULAR HEMOGLOB 24.4 pg (26.0-34.0); MEAN CORPUSCULAR VOLUME 80.7 fL (80-100); MEAN PLATELET VOLUME 9.7 fL (9.2-13.0); MONOCYTES 6.5 %; MONOCYTES ABSOLUTE 0.27 10/3/uL (0.21-1.20); NEUTROPHILS 84.4 %; NEUTROPHILS ABSOLUTE 3.49 10/3/uL (2.02-8.40); PLATELET COUNT 342 10/3/uL (150-400); RBC DISTRIBUTION WIDTH 17.8 % (12.0-16.0); RED CELL COUNT 3.53 10/6/uL (4.0-5.6); WHITE BLOOD CELLS 4.1 10/3/uL (4.5-10.5)
[2016-10-20 06:43] LABS: MANUAL DIFF NO %
[2016-10-20 06:45] LABS: INTERNATIONAL NORMAL RATI 1.5 UNITS (-); PROTIME (NOT ORD) 17.6 SEC (12.0-14.5)
[2016-10-20 06:48] LABS: A/G RATIO 0.5 (0.7-1.9); ALBUMIN 1.8 G/DL (3.5-5.0); ALKALINE PHOSPHATASE 104 U/L (45-117); CALCIUM, SERUM 8.7 MG/DL (8.5-10.4); CHLORIDE, SERUM 110 MMOL/L (96-112); CO2 (CARBON DIOXIDE) 34 MMOL/L (24-34); CREATININE 0.37 MG/DL (0.55-1.02); GFR AFRICAN AMERICAN 118 ML/MIN (>=60); GFR NON AFRICAN AMERICAN 102 ML/MIN (>=60); GLOBULIN 3.8 G/DL (2.5-4.1); GLUCOSE, SERUM 124 MG/DL (60-99); PHOSPHORUS, SERUM 3.5 MG/DL (2.5-4.5); POTASSIUM, SERUM 3.3 MMOL/L (3.5-5.3); SGOT(AST) 21 U/L (5-40); SGPT(ALT) 40 U/L (5-65); SODIUM, SERUM 148 MMOL/L (135-148); TOTAL BILIRUBIN 0.3 MG/DL (0-1.2); TOTAL PROTEIN 5.6 G/DL (6.0-8.5)
[2016-10-20 06:52] LABS: BUN (BLOOD UREA NITROGEN) 14 MG/DL (6-23)
[2016-10-20 07:57] LABS: PROCALCITONIN 0.67 ng/mL (<0.5)
[2016-10-21 07:00] LABS: INTERNATIONAL NORMAL RATI 1.8 UNITS (-)
[2016-10-21 07:05] LABS: PROTIME (NOT ORD) 20.8 SEC (12.0-14.5)
== END 2016-10-21 17:58 | DRG 871 ==
LOC: MIC 16:07 → 4SO 10-15 05:51
PROVIDERS: Internal Medicine; Internal Medicine Critical Care Medicine; Internal Medicine Pulmonary Disease
PROC: 02H633Z Insertion of Infusion Device into Right Atrium, Percutaneous Approach (ICD-10-PCS; principal; 2016-10-11)
PROC: B244ZZZ Ultrasonography of Right Heart (ICD-10-PCS; principal; 2016-10-11)
DX: A40.8 Other streptococcal sepsis (principal); R65.21 Severe sepsis with septic shock; N17.0 Acute kidney failure with tubular necrosis; J96.21 Acute and chronic respiratory failure with hypoxia; J15.4 Pneumonia due to other streptococci; E43 Unspecified severe protein-calorie malnutrition; G40.909 Epilepsy, unspecified, not intractable, without status epilepticus; Z89.612 Acquired absence of left leg above knee; Z68.1 Body mass index [BMI] 19.9 or less, adult; Z66 Do not resuscitate; I10 Essential (primary) hypertension; I73.9 Peripheral vascular disease, unspecified; E78.5 Hyperlipidemia, unspecified; Z85.42 Personal history of malignant neoplasm of other parts of uterus; Z85.21 Personal history of malignant neoplasm of larynx; Z92.21 Personal history of antineoplastic chemotherapy; Z92.3 Personal history of irradiation; Z86.718 Personal history of other venous thrombosis and embolism; Z90.710 Acquired absence of both cervix and uterus; Z79.899 Other long term (current) drug therapy; Z87.891 Personal history of nicotine dependence; Z88.8 Allergy status to other drugs, medicaments and biological substances; Y95 Nosocomial condition; R13.10 Dysphagia, unspecified; Z79.01 Long term (current) use of anticoagulants; R62.7 Adult failure to thrive; Z93.1 Gastrostomy status
CPT/HCPCS: 36569-52; 71010; 71275; 74230; 80048; 80053; 81001; 82533; 82550; 82553; 83605; 83735; 83880; 84100; 84132; 84134; 84145; 84484; 85025; 85610; 85730; 87040; 87070; 87205; 87449; 87641; 92611-GN; 93005; 94640; 94668; 96523; 97110-GP; 97163-GP; 97164-GP; 97530-GP; A9270-GY; C1751; C1894; C8929; C9113; G8978-CL-GP; G8979-CK-GP; G8996-CN-GN; G8997-CN-GN; G8998-CN-GN; J0295; J0692; J3370; J3430; J3475; Q9957; Q9967